=== PATIENT | female | born 1945 | race Caucasian/White ===

== ENCOUNTER 2021-12-12 00:22 | Emergency (ER) | payer MEDICARE, OTHER ==
[~2021-12-12] VITALS: Ht 157.5 cm; Wt 53.1 kg
[2021-12-12] MEDS ORDERED: OXYCODONE/APAP 5-325 MG TABLET ONE (00:44)
[2021-12-12] MEDS ORDERED: OXYCODONE/APAP 5-325 MG TABLET PO ONE (00:45)
--- NOTE | 2021-12-12 00:45 | NUR ---
Seen and examined by Dr. Maldonado. pt in room Alert, able to walk. awaiting for Xray.
--- NOTE | 2021-12-12 00:50 | NUR ---
accompanied by dtr
--- NOTE | 2021-12-12 01:01 | NUR ---
xray is being done
[2021-12-12] MEDS ORDERED: OXYC-128 PO (01:25)
[2021-12-12 01:30] VITALS: BP 120/80
--- NOTE | 2021-12-12 01:31 | NUR ---
Patient discharged to home in stable condition. Written and verbal after care instructions given. Patient verbalizes understanding of instructions. Stressed follow up or return to ER for worsening s/s.
== END 2021-12-12 01:31 | disposition home or self-care (01) ==
LOC: ER 00:22
DX: S40.011A Contusion of right shoulder, initial encounter (principal); W01.0XXA Fall on same level from slipping, tripping and stumbling without subsequent striking against object, initial encounter; Y92.89 Other specified places as the place of occurrence of the external cause; E11.9 Type 2 diabetes mellitus without complications; M79.671 Pain in right foot; M81.0 Age-related osteoporosis without current pathological fracture
CPT/HCPCS: 73030; 73620; A4663